=== PATIENT | female | born 1965 | race Asian ===

== ENCOUNTER 2016-08-06 08:15 | Outpatient (CLI) | payer BC | END 2016-08-06 09:30 | disposition home or self-care (01) | LOC: RAD 08:15 | DX: N20.2 Calculus of kidney with calculus of ureter (principal) ==

== ENCOUNTER 2018-04-08 13:56 | Outpatient (CLI) | payer BC | END 2018-04-08 22:08 | disposition home or self-care (01) | LOC: RAD 13:56 | DX: M25.552 Pain in left hip (principal) ==

== ENCOUNTER 2018-05-13 08:27 | Outpatient (CLI) | payer BC | END 2018-05-13 19:41 | disposition home or self-care (01) | LOC: MAMMO 08:27 | DX: M25.552 Pain in left hip (principal); Z12.31 Encounter for screening mammogram for malignant neoplasm of breast ==

== ENCOUNTER 2018-11-06 08:19 | Outpatient (CLI) | payer BC ==
[2018-11-06 09:55] LABS: PLATELET COUNT 311 K/uL (152-353)
[2018-11-06 10:28] LABS: POTASSIUM 4.2 mmol/L (3.6-5.2)
== END 2018-11-06 21:00 | disposition home or self-care (01) ==
LOC: RAD 08:19
PROVIDERS: Nurse Practitioner
DX: R10.9 Unspecified abdominal pain (principal); E78.00 Pure hypercholesterolemia, unspecified; I10 Essential (primary) hypertension; E55.9 Vitamin D deficiency, unspecified; R53.82 Chronic fatigue, unspecified; R73.9 Hyperglycemia, unspecified
CPT/HCPCS: 36415; 80053; 80061; 82306; 82607; 83036; 84443; 85027

== ENCOUNTER 2018-12-10 09:18 | Outpatient (CLI) | payer BC | END 2018-12-10 19:40 | disposition home or self-care (01) | LOC: NM 09:18 | DX: R10.11 Right upper quadrant pain (principal) | CPT/HCPCS: A9537 ==

== ENCOUNTER 2020-07-06 09:23 | Outpatient (CLI) | payer OTHER | END 2020-07-06 19:35 | disposition home or self-care (01) | LOC: RAD 09:23 | PROVIDERS: ATTEND Internal Medicine | DX: Z02.71 Encounter for disability determination (principal) ==

== ENCOUNTER 2022-10-08 15:35 | Outpatient (CLI) | payer OTHER | END 2022-10-08 21:34 | disposition home or self-care (01) | LOC: RAD 15:35 | PROVIDERS: ATTEND Internal Medicine | DX: J40 Bronchitis, not specified as acute or chronic (principal) ==

== ENCOUNTER 2022-10-20 09:36 | Emergency (ER) | payer OTHER ==
[~2022-10-20] VITALS: Ht 149.9 cm; Wt 103.0 kg
[2022-10-20 09:43] VITALS: TEMP 97.8
[2022-10-20 10:50] VITALS: BP 106/66
== END 2022-10-20 10:53 | disposition home or self-care (01) ==
LOC: ED 09:36
DX: H57.11 Ocular pain, right eye (principal); I10 Essential (primary) hypertension
CPT/HCPCS: 99283